=== PATIENT | female | born 1945 | race Caucasian/White ===

== ENCOUNTER 2019-02-02 12:50 | Emergency (ER) | payer MEDICARE, OTHER ==
[~2019-02-02] VITALS: Ht 165.1 cm; Wt 68.0 kg
[2019-02-02 12:50] VITALS: Ht 165.1 cm; Wt 68.0 kg
[2019-02-02 14:50] VITALS: BP 136/89
== END 2019-02-02 14:50 | disposition home or self-care (01) ==
LOC: ED 12:50 → EDBD 12:50 → ED 14:50
DX: S80.02XA Contusion of left knee, initial encounter (principal); S00.212A Abrasion of left eyelid and periocular area, initial encounter; I10 Essential (primary) hypertension; R62.50 Unspecified lack of expected normal physiological development in childhood; Z88.0 Allergy status to penicillin; W18.30XA Fall on same level, unspecified, initial encounter; Y93.89 Activity, other specified; Y92.89 Other specified places as the place of occurrence of the external cause; Y99.8 Other external cause status